=== PATIENT | female | born 1995 | race Caucasian/White ===

== ENCOUNTER 2018-04-24 10:43 | Emergency (ER) | payer OTHER | END 2018-04-24 12:33 | disposition home or self-care (01) | LOC: MADERS 10:43 | DX: O20.0 Threatened abortion (principal); O99.331 Smoking (tobacco) complicating pregnancy, first trimester; Z3A.12 12 weeks gestation of pregnancy; Z71.6 Tobacco abuse counseling | CPT/HCPCS: 36415; 86900; 86901; 99406 ==